=== PATIENT | male | born 1995 | race American Indian/Alaskan Native ===

== ENCOUNTER 2017-07-19 09:48 | Emergency (ER) | payer SELFPAY ==
[2017-07-19 09:55] VITALS: BP 115/60
--- NOTE | 2017-07-19 11:14 | Emergency Department Report ---
ED Male HPI - General Chief complaint: Urogenital-Male Stated complaint: STD CHECK UP Time Seen by Provider: 07/19/17 11:10 Source: patient Mode of arrival: Ambulatory Limitations: No Limitations - History of Present Illness Initial comments: Patient here reports that he needs to be checked for STD. Pain the pain to right hip without any injury. Denies any nausea or vomiting. Pain is 6 out of 10 and achy. No [id number] medication taken. Patient states that he is not sure if he was exposed to STD but he had unsafe sex and he has clear penile drainage. Denies any abdominal or back pain. Denies any urinary burning frequency or urgency. Denies any sore throat. Denies any rash to penile area. Denies any fever or chills. Patient did not take any [id number] medication for pain. Pain is worse on movement or rest then. MD Complaint: penile discharge, other ( right hip pain) Onset/Timin -: days(s) Radiation: none Severity: moderate Severity scale (0 -10): 6 Quality: aching Improves with: none Worsens with: none discharge, other ( right hip pain). denies: swelling, mass, rash, urinary retention, blood in urine, dysuria, fever, nausea/vomiting, incontinence - Related Data Sexually active: Yes Previous Rx's Medication Instructions Recorded Last Taken Type Acetaminophen/Codeine [Tylenol 1 tab PO Q6H PRN #20 tab 04/11/15 Unknown Rx /Codeine # 3 tab] Loperamide [Imodium] 2 mg PO Q2HR #20 capsule 04/11/15 Unknown Rx Ondansetron [Zofran ODT TAB] 4 mg PO Q8HR #20 tab.rapdis 04/11/15 Unknown Rx metroNIDAZOLE [Flagyl TAB] 500 mg PO Q12HR #20 tab 04/11/15 Unknown Rx Ibuprofen [Motrin] 600 mg PO Q8H PRN 5 Days #15 tablet 07/19/17 Unknown Rx Allergies Allergy/AdvReac Type Severity Reaction Status Date / Time No Known Allergies Allergy Verified 04/10/15 16:06 ED Review of Systems ROS: Stated complaint: STD CHECK UP Other details as noted in HPI Comment: All other systems reviewed and negative Constitutional: no symptoms reported ENT: denies: ear pain, throat pain, congestion Respiratory: no symptoms reported Cardiovascular: denies: chest pain, palpitations, dyspnea on exertion, edema, syncope, paroxysmal nocturnal dyspnea Gastrointestinal: denies: abdominal pain, nausea, vomiting, diarrhea, constipation Genitourinary: discharge. denies: urgency, dysuria, frequency, hematuria, testicular pain, testicular mass Musculoskeletal: arthralgia. denies: back pain, joint swelling, myalgia Skin: denies: rash Neurological: denies: headache, weakness, numbness, paresthesias, confusion, abnormal gait, vertigo ED Past Medical Hx - Past Medical History Previous Medical History?: No - Surgical History Past Surgical History?: No - Family History Family history: no significant - Social History Smoking Status: Current Every Day Smoker Substance Use Type: Marijuana - Medications Home Medications: Home Medications Medication Instructions Recorded Confirmed Last Taken Type Acetaminophen/Codeine [Tylenol 1 tab PO Q6H PRN #20 tab 04/11/15 Unknown Rx /Codeine # 3 tab] Loperamide [Imodium] 2 mg PO Q2HR #20 capsule 04/11/15 Unknown Rx Ondansetron [Zofran ODT TAB] 4 mg PO Q8HR #20 tab.rapdis 04/11/15 Unknown Rx metroNIDAZOLE [Flagyl TAB] 500 mg PO Q12HR #20 tab 04/11/15 Unknown Rx Ibuprofen [Motrin] 600 mg PO Q8H PRN 5 Days #15 tablet 07/19/17 Unknown Rx ED Physical Exam - General Limitations: No Limitations General appearance: alert, in no apparent distress - Head Head exam: Present: atraumatic, normocephalic, normal inspection - Eye Eye exam: Present: normal appearance, PERRL, EOMI Pupils: Present: normal accommodation - ENT ENT exam: Present: normal exam, normal orophraynx, mucous membranes moist - Neck Neck exam: Present: normal inspection, full ROM. Absent: tenderness, meningismus, lymphadenopathy - Respiratory Respiratory exam: Present: normal lung sounds bilaterally. Absent: respiratory distress, chest wall tenderness - Cardiovascular Cardiovascular Exam: Present: regular rate, normal rhythm, normal heart sounds. Absent: systolic murmur, diastolic murmur - GI/Abdominal GI/Abdominal exam: Present: soft, normal bowel sounds. Absent: distended, tenderness, guarding, rebound, rigid, mass, bruit, pulsatile mass, hernia - exam: Present: normal inspection, urethral discharge. Absent: testicular tenderness, scrotal swelling, vertical testicular lie, circumcision External exam: Present: normal external exam. Absent: erythema, swelling, lesions, lacerations, ecchymosis, bleeding - Expanded Exam Expanded Male exam: Absent: phimosis, paraphimosis, lesions, induration, erythema, perineal induration, balanitis, priapism - Extremities Exam Extremities exam: Present: normal inspection, full ROM, normal capillary refill , other (no clubbing, cyanosis or edema to extremities. +2 pulses all extremities. No neurovascular compromise. +5/5 strength in all extremities. No joints deformity, crepitus, effusion, erythema. Extremities with good color , sensation, temperature and movement. Bilateral hips with normal examination. Patient able to ambulate without any difficulties. No swelling noted. Negative Homans sign). Absent: tenderness, pedal edema, joint swelling, calf tenderness - Back Exam Back exam: Present: normal inspection, full ROM. Absent: tenderness, CVA tenderness (R), CVA tenderness (L), muscle spasm, paraspinal tenderness, vertebral tenderness, rash noted - Neurological Exam Neurological exam: Present: alert, oriented X3, normal gait, reflexes normal. Absent: motor sensory deficit - Psychiatric Psychiatric exam: Present: normal affect, normal mood - Skin Skin exam: Present: warm, dry, intact, normal color. Absent: rash ED Course Vital Signs 07/19/17 09:51 Temperature 98.1 F Pulse Rate 64 Respiratory 16 Rate Blood Pressure 115/60 O2 Sat by Pulse 98 Oximetry - Reevaluation(s) Reevaluation #1: 07/19/17 11:59 She is stable throughout ED stay. Patient requested to be treated for STD due to penile drainage and concerns for STD. Patient was treated with Rocephin twinge of 50 mg IM, azithromycin 1 g by mouth and Flagyl 2 g by mouth. He had no adverse reaction to medication. ED Medical Decision Making - Lab Data Lab Results 07/19/17 Range/Units Unknown Urine Color Straw (Yellow) Urine Turbidity Clear (Clear) Urine pH 7.0 (5.0-7.0) Ur Specific [place] 1.004 (1.003-1.030) Urine Protein <15 mg/dl (Negative) mg/dL Urine Glucose (UA) Neg (Negative) mg/dL Urine Ketones Neg (Negative) mg/dL Urine Blood Neg (Negative) Urine Nitrite Neg (Negative) Urine Bilirubin Neg (Negative) Urine Urobilinogen < 2.0 (<2.0) mg/dL Ur Leukocyte Esterase Neg (Negative) Urine WBC (Auto) < 1.0 (0.0-6.0) /HPF Urine RBC (Auto) < 1.0 (0.0-6.0) /HPF U Epithel Cells (Auto) < 1.0 (0-13.0) /HPF Gonorrhea and chlamydia had pended - Medical Decision Making ED course: Pt presented emergency room requesting to be tested for STD and for check up. His complaint is penile drainage with right hip pain and he is requested to treated. exam is normal. Patient with normal examination of bilateral hips. Patient with concerns for STD due to penile drainage therefore he was treated with Rocephin 250 mg IM, Flagyl 2 g by mouth and Zithromax 1 g by mouth to cover gonorrhea, chlamydia and Trichomonas. I discussed the patient that he can follow-up with [facility] to get further STD tests. I also discussed with him that he can get free HIV test at [facility] of department to call and inquire what days a have HIV tested. I also discussed with him that his urine result was normal and gonorrhea and chlamydia tests will be back in 5 days and if he wants to know the results he should return with his ID to medical records department to get a copy of his results. Safe sex encouraged educated on STD. Patient was understanding of diagnoses and treatment plan and discharged home in stable condition with prescription for Motrin for right hip pain. Critical care attestation.: If time is entered above; I have spent that time in minutes in the direct care of this critically ill patient, excluding procedure time. ED Disposition Clinical Impression: Concern about STD in male without diagnosis, Arthralgia of right hip, Abnormal penile discharge Disposition: TO HOME OR SELFCARE Is pt being admited?: No Does the pt Need Aspirin: No Condition: Stable Instructions: Arthralgia (ED), Safe Sex (ED), Sexually Transmitted Diseases (ED ) Additional Instructions: Pleae refrain from having sexual activity for the next 2 weeks. Follow-up with your primary care physician in 2 days Follow up with [facility] in 7-10 days for repeat STD check You were treated today in emergency room for gonorrhea, chlamydia and Trichomonias. Your tests for gonorrhea and chlamydia will be back in 5-7 days so he can return to the medical records department with your ID to get test results Practice safe sex do not drink alcohol for the next 7 days as this will interact negatively with medication given for STD. Tell partner know that you're treated for STD and hospital today. increase her fluid intake Take medication as prescribed. Prescriptions: Ibuprofen [Motrin] 600 mg PO Q8H PRN 5 Days #15 tablet PRN Reason: Pain Referrals: [facility] Depart [Outside] - 7-10 days Forms: Work/School Release Form(ED)
[2017-07-19 11:24] LABS: Bilirubin,Urine NEG (Negative); Blood,Urine NEG (Negative); Ketones,Urine NEG (Negative); Leukocyte Esterase,Urine NEG (Negative); Nitrite,Urine NEG (Negative); Protein,Urine <15 mg/dL mg/dL (Negative); RBC,Urine < 1.0 /HPF (0.0-6.0); Urobilinogen,Urine < 2.0 mg/dL (<2.0)
[2017-07-19 11:35] LABS: WBC,Urine < 1.0 /HPF (0.0-6.0)
[2017-07-19] MEDS ORDERED: FLAGYL PO ONE (11:47)
[2017-07-19] MEDS ORDERED: ROCEPHIN IM ONE (11:47)
[2017-07-19] MEDS ORDERED: XYLOCAINE 1% MPF 5 mL INFILTRATI ONE (11:47)
[2017-07-19] MEDS ORDERED: ZITHROMAX PO ONE (11:47)
== END 2017-07-19 12:12 | disposition home or self-care (01) ==
LOC: ED 09:48
DX: R36.9 Urethral discharge, unspecified (principal); M25.551 Pain in right hip; F12.10 Cannabis abuse, uncomplicated; F17.200 Nicotine dependence, unspecified, uncomplicated
CPT/HCPCS: 81001; 87591; 96372; 99283; J0696